=== PATIENT | female | born 1940 | race Caucasian/White ===

== ENCOUNTER 2016-09-17 09:31 | Day surgery (SDC) | payer MEDICARE, OTHER ==
[~2016-09-17] VITALS: Ht 152.4 cm; Wt 73.5 kg
--- NOTE | 2016-09-17 06:45 | PCM.HPANE ---
Patient Data Surgeon Admitting Provider: Attending Provider:Devin Rodriguez MD Primary Care Physician:Mendel Foss MD Other Provider:Amber Weber Anesthesia Reason for Visit Left Carpal Tunnel Syndrome Ht/WT & BMI Height (Feet): 5 Height (Inches): 0 Weight (Kilograms): 73.482 Body Mass Index 31.00 Allergies Coded Allergies: omeprazole (Verified Allergy, Severe, RASH, 09/12/16) meprobamate (Verified Allergy, Unknown, unknown, 09/12/16) atorvastatin (Verified Adverse Reaction, Severe, ELEVATED LFTS, 09/12/16) diphenhydramine (Verified Adverse Reaction, Severe, INSOMNIA, 09/12/16) simvastatin (Verified Adverse Reaction, Severe, CRAMPS, 09/12/16) Past Anesthesia History Anesthesia History: Denies:: Abnormal Airway, Anesthesia Reactions, Difficult Intubation, Fam Anesthesia Reaction, Fam Malignant Hypertherm, Malignant Hyperthermia Diabetes History Hx Diabetes?: No MRSA MRSA: No Medications Blood Thinner: Aspirin Reported Medications Calcium Carbonate/Vitamin D3 (Calcium 500 + Vit D Caplet)1 Each Tablet1 Each PO DAILY 04/28/14 Rosuvastatin Calcium (Crestor)5 Mg [id number] Mg PO DAILY 30 Days Ref 0 12/20/13 Pramipexole Dihydrochloride (Mirapex)0.5 Mg Tablet0.5-1 Mg PO PM 12/20/13 Paroxetine (Paxil)20 Mg Lardul38 Mg PO HS 30 Days Ref 0 12/20/13 Discontinued Reported Medications Aspirin/Calcium Carbonate/Mag (Aspirin Buffered)325 Mg [id number] Mg PO DAILY Ref 0 05/02/14 [Allergy Injections] No Conflict Check1 INJ [id number] ANTIHISTIMINE 05/01/14 Calcium Carbonate (Tums)200 Mg Tab.[id number] Mg PO PRN PRN For Dyspepsia or Heartburn 30 Days 04/28/14 Cholecalciferol (Vitamin D3) (Vitamin D)2,000 Unit Capsule2,000 Unit PO DAILY 30 Days Ref 0 04/28/[address] (Prevacid)30 Mg Capsule.dr30 Mg PO DAILY #30 CAPSULE Ref 0 12/20/13 Estradiol (Estrace)42.5 Gm Cream.appl1 G VG UD PRN 2X/WK #1 TUBE Ref 0 12/20/13 History History of ENT Problems?: Yes HEENT History: Positive for:: Cataracts (S/P EXTRACTION) Sinus Problem (ALLERGIC RHINITIS) Denies:: Abnormal Airway Difficult Intubation Dysphagia Hearing Problem Denture Type: None Teeth Condition: Within Normal Limits Other HEENT Pertinent History: S/P T&A Hx of Heart Problems?: Yes Cardiovascular History: Denies:: AICD Atrial Fibrillation Chest Pain Heart Murmur Hypertension (HYPERLIPIDEMIA) Pacemaker Valvular Heart Disease Hx of Respiratory Problem?: Yes Respiratory History: Positive for:: Cough (CHRONIC COUGH R/T GERD & POST- NASAL DRIP) Pneumonia (HX OF) Use of C-PAP Machine (SASHA+ SLEEP STUDY 04/2012) Hx Neurologic Problems?: Yes Neurological History: Denies:: CVA Dementia Other Neurological Pertinent: PLMD, RLS Hx of GI Problems?: Yes Other GI Pertinent History: S/P APPY Hx of Problems?: Yes Other Pertinent History: HX URETHRAL STRICTURE Female Hx: Denies:: Currently (S/P BTL HX VAGINAL WALL PROLAPSE) Skin History: Denies:: History Skin Disorders? 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43) Denies:: Cancer Endocrine Disease Hospitalization History Blood Transfusions: Denies:: Blood Transfusions Hx Diabetes: No Hx Alcohol Use: NoHx Substance Use: No Smoking Status: Unknown if Ever Smoker Have You Smoked inLast 12 mo: No Stop/Bang S-Snoring: Do You Snore Loudly: Yes T-Tired: feel tired, fatigued: Yes O-Obsered: Observed not breath: No P-Blood Pressure: treated: No B- Body Mass Index > 35 kg/m2: No A- Age over 50: Yes N- Neck Large Circumference: No G- Gender Male: No SASHA Total Score: 3 Risk Assessment Category Category 1A: Patient has history of documented sleep apnea, and HAS NOT received any narcotic, sedative or anesthesia administration during this stay. Category 1B: Patient has history of documented sleep apnea, and HAS received any narcotic , sedative or anesthesia administration during this stay Category 2: Patient has SUSPECTED Obstructive Sleep Apnea, and HAS received any narcotic , sedative or anesthesia administration during this stay. Category 3: Patient has SUSPECTED Obstructive Sleep Apnea and HAS NOT received narcotic, sedative or anesthesia administration during this stay. Category 4: Outpatient in Procedural Areas with known sleep apnea or who screen positive for High Risk via the STOP/BANG questionnaire. Exam Exam General Appearance: Alert HEENT/AIRWAY: MP 1 Lungs: Clear to Auscultation Heart: Exam Unremarkable Plan Impression Patient chart reviewed, patient interviewed and anesthestic plan with risks, benefits, and alternatives discussed, and informed consent obtained. ASA Physical Status: ASA2 Mod Systemic Disease Anesthetic Plan: MAC Bene/Risks/Altern/Consents: Yes HP Complete Prior to Induction: Yes Blu Shelby MD Sep 17, 2016 06:45
[~2016-09-17 09:31] MED LIST: CALC-78 PO; Lactated Ringer's 1,000 ML IV SCH; PARO20TA57 PO; PRAM0.5T3 PO; ROSU5TAB PO
[2016-09-17] MEDS ORDERED: Propofol 10 mg/mL 20 mL Inj ONE (09:32)
[2016-09-17] MEDS ORDERED: Lactated Ringer's 1,000 ML IV ONE (10:15)
[2016-09-17 10:28] VITALS: BP 154/69; PULSE 57; RESP 20; O2SAT 96
[2016-09-17] MEDS ORDERED: Lactated Ringer's 1,000 ML IV SCH (11:31)
[2016-09-17] MEDS ORDERED: Lactated Ringer's 500 ML IV PRN (11:31)
[2016-09-17] MEDS ORDERED: Bupivacaine-MPF 0.25% 30 mL Inj INFILTRATE ONE (11:32)
[2016-09-17] MEDS ORDERED: Ondansetron 2 mg/mL 2 mL Inj IVPUSH PRN (11:35)
[2016-09-17] MEDS ORDERED: HYDROmorphone 1 mg/mL Inj IVPUSH PRN (11:35)
[2016-09-17] MEDS ORDERED: EPHEDrine Sulfate 50 mg/mL Inj IVPUSH PRN (11:35)
[2016-09-17] MEDS ORDERED: fentaNYL-PF 50 mCg/mL 2 mL Inj IVPUSH PRN (11:35)
[2016-09-17] MEDS ORDERED: hydrALAZINE 20 mg/mL Inj IVPUSH PRN (11:35)
[2016-09-17] MEDS ORDERED: Dexamethasone 4 mg/mL Inj IVPUSH PRN (11:35)
[2016-09-17] MEDS ORDERED: Atropine 0.4 mg/mL Inj IVPUSH PRN (11:35)
[2016-09-17] MEDS ORDERED: Phenylephrine 10,000 mCg/mL Inj IVPUSH PRN (11:35)
[2016-09-17] MEDS ORDERED: Labetalol 5 mg/mL 4 mL Inj IV PRN (11:35)
--- NOTE | 2016-09-17 12:14 | PCM.ANEP1 ---
Post Anesthesia PACU Phase 1 Assessment Vital Signs Vital Signs Date Time Temp Pulse Resp B/P Pulse Ox O2 Delivery O2 Flow Rate FiO2 09/17/16 10:28 36.2 57 20 154/69 96 Room Air Anesthetic Administered: MAC Level of Alertness: Awake, talking GUERRERO's with Equal Strength: Yes Pain: No Nausea or Vomiting: No CV Function & Hydration Stable: Yes Airway Device: Oxygen Delivery: Room Air Lungs: Normal Air Movement PACU Phase 2 Assessment Complications: No Follow up Care: No Patient Instructions Provided: N/A Blu Shelby MD Sep 17, 2016 12:14
--- NOTE | 2016-09-19 16:20 | OP ---
[address] [address] OPERATIVE REPORT PATIENT: LIDIA SALAMANCA : 1940 MR#: [id number] ADMIT: 09/17/2016 JOB ID: [id number] DATE OF SURGERY: 09/17/2016 PREOPERATIVE DIAGNOSIS(ES): Left carpal tunnel syndrome. POSTOPERATIVE DIAGNOSIS(ES): Left carpal tunnel syndrome. PROCEDURE PERFORMED: Left open carpal tunnel release. SURGEON: Devin Rodriguez M.D. COMMUTATOR REPAIRER: None. ANESTHESIA: MAC with local. COMPLICATIONS: None apparent. SPECIMEN: None. ESTIMATED BLOOD LOSS: Minimal. INDICATIONS FOR PROCEDURE: This is a 76-year-old female patient with bilateral carpal tunnel syndrome diagnosed by physical examination findings, history, and an electrodiagnostic studies. At this point, a left-sided carpal tunnel release is indicated. PROCEDURES AND FINDINGS: The patient was identified in the preoperative area. Surgical site was marked. The patient was then taken back to the operating room and placed supine on the operating table. Appropriate time-outs were taken. MAC was induced smoothly. The patient was then prepped and draped in the usual sterile manner. Local anesthesia was then infiltrated to the left hand surgical site consisting of 1% lidocaine and 0.25% Marcaine. Left hand was then exsanguinated and a tourniquet inflated to 250 mmHg. An open carpal tunnel incision was then made starting at the junction of the ring finger ray with the Bustillos cardinal line, extending 1.5 cm proximally. This was done with a 15 blade. I then performed blunt dissection down to the superficial palmar fascia, which was split with a #15 blade. Blunt dissection was then used to deepen the incision down to the transverse carpal ligament. The distal edge of the ligament was opened in a layer by layer manner with a #15 blade until the carpal tunnel was entered. Residual fascial bands distal to that ligament were lysed bluntly and sharply with a pair of tenotomy scissors. Proximally, the transverse carpal ligament was isolated using the harbor boat pilot from the [employer] set. Once this has been done, it was opened with the [employer] [place]. The carpal tunnel was examined and the nerve was found to be intact. The roof of the tunnel was palpated and was found to be widely open. Tourniquet was released and hemostasis was obtained with electrocautery. The incision was then reapproximated using several 4-0 nylon horizontal mattress sutures. The patient was then placed into a small volar splint. The patient tolerated the procedure well. Needle count, sponge count, instrument counts were correct at the end of the procedure. The patient was transported to recovery in stable condition.
== END 2016-09-17 23:59 | disposition home or self-care (01) ==
LOC: SAS 09:31
PROVIDERS: ATTEND Plastic Surgery
DX: G56.02 Carpal tunnel syndrome, left upper limb (principal); K21.9 Gastro-esophageal reflux disease without esophagitis; G25.81 Restless legs syndrome; E78.5 Hyperlipidemia, unspecified; G47.33 Obstructive sleep apnea (adult) (pediatric); F32.9 Major depressive disorder, single episode, unspecified; G47.61 Periodic limb movement disorder; J30.9 Allergic rhinitis, unspecified
CPT/HCPCS: 64721; J7120